=== PATIENT | female | born 1990 | race Caucasian/White ===

== ENCOUNTER 2017-11-13 | Emergency (ER) | payer MEDICAID | END 2017-11-13 20:05 | disposition home or self-care (01) | PROC: 2W3DX1Z Immobilization of Left Lower Arm using Splint (ICD-10-PCS; principal; 2017-11-13) ==

== ENCOUNTER 2017-11-29 15:11 | Day surgery (SDC) | payer MEDICAID ==
[~2017-11-29 15:11] MED LIST: HYDROCODONE/APAP 5/325 TAB PO SCH
[2017-11-29] MEDS ORDERED: BUPIVACAINE/EPI 0.5% 30 ML SDV ONE ×2 (15:17→17:27)
[2017-11-29] MEDS ORDERED: ceFAZolin 2 GM/DEXTROSE 100 ML IV ONE (15:28)
[2017-11-29] MEDS ORDERED: LR 1,000 ML IV ONE (15:29)
[2017-11-29] MEDS ORDERED: LIDOCAINE 1% 2 ML INJ ID PRN (15:29)
--- NOTE | 2017-11-29 18:11 | PDHPUP ---
History & Physical Update H&P update statement: This history and physical update is based on an assessment of the patient which was completed after admission or registration (within 24 hours), but prior to the surgery/procedure. H&P update: H&P reviewed & patient examined, no change in patient's condition since H&P completed
[2017-11-29] MEDS ORDERED: MIDAZOLAM 2 MG/2 ML VIAL ONE (18:50)
[2017-11-29] MEDS ORDERED: MIDAZOLAM 2 MG/2 ML VIAL IVP ONE (18:50)
[2017-11-29] MEDS ORDERED: ALBUTEROL 3 ML DEYVIAL IH PRN (18:51)
[2017-11-29] MEDS ORDERED: ONDANSETRON 4 MG/2 ML VIAL IVP PRN (18:51)
[2017-11-29] MEDS ORDERED: HYDROmorphONE/DILAUDID 1 MG/ML INJ IVP PRN (18:51)
[2017-11-29] MEDS ORDERED: NALOXONE HCL 0.4 MG/ML INJ IVP PRN (18:51)
[2017-11-29] MEDS ORDERED: oxyCODONE IR 5 MG TAB PO PRN (18:51)
[2017-11-29] MEDS ORDERED: PROMETHAZINE HCL 25 MG/ML INJ IVP PRN (18:51)
[2017-11-29] MEDS ORDERED: HYDROCODONE/APAP 5/325 TAB PO PRN (18:51)
[2017-11-29] MEDS ORDERED: fentaNYL 100 MCG/2 ML INJ IVP PRN (18:51)
[2017-11-29] MEDS ORDERED: DEXAMETHASONE 4 MG/ML VIAL IVP PRN (18:51)
[2017-11-29] MEDS ORDERED: LR 500 ML IV PRN (18:51)
--- NOTE | 2017-11-29 18:51 | PDANEPAE ---
ANE History of Present Illness here for wrist ORIF ANE Past Medical History - Cardiovascular History Hx Hypertension: No Hx Arrhythmias: No Hx Chest Pain: No Hx Coronary Artery / Peripheral Vascular Disease: No Hx CHF / Valvular Disease: No Hx Palpitations: No - Pulmonary History Hx COPD: No Hx Asthma/Reactive Airway Disease: No Hx Recent Upper Respiratory Infection: No Hx Oxygen in Use at Home: No Hx Sleep Apnea: No Sleep Apnea Screening Result - Last Documented: Negative - Neurologic History Hx Cerebrovascular Accident: No Hx Seizures: No Hx Dementia: No - Endocrine History Hx Diabetes: No - Renal History Hx Renal Disorders: No Renal History Comment: HX OF KIDNEY INFECTION 10 YRS AGO - Liver History Hx Hepatic Disorders: No - Neurological & Psychiatric Hx Hx Neurological and Psychiatric Disorders: Yes Neurological / Psychiatric History Comment: ANXIETY. DEPRESSION. ADHD - Cancer History Hx Cancer: No - Congenital Disorder History Hx Congenital Disorders: No - GI History Hx Gastrointestinal Disorders: No - Other Health History Other Health History: LOTS OF MOSQUITO BITES CURRENTLY - Chronic Pain History Chronic Pain: No - Surgical History Prior Surgeries: RADIAL PLATE AND PINS IN RIGHT WRIST. TUBES IN EARS CHILD ANE Review of Systems Review of systems is: negative Review of Systems: - Exercise capacity Exercise capacity: >=4 METS METS (RN): 4 METS ANE Patient History - Allergies Allergies/Adverse Reactions: No Known Allergies Allergy (Verified 11/28/17 18:02) - Home Medications Home medications: home medication list seen and reviewed Home Medications: ACETAMINOPHEN 11/28/17 [Last Taken 11/15/17] Ibuprofen 11/28/17 [Last Taken 11/15/17] - NPO status NPO Status: no food or drink >8 hours NPO Since - Liquids (Date): 11/29/17 NPO Since - Liquids (Time): 10:00 NPO Since - Solids (Date): 11/29/17 NPO Since - Solids (Time): 13:00 - Smoking Hx Smoking Status: Former smoker - Alcohol Use Alcohol Use: Occasionally - Family Anes Hx Family Hx Anesthesia Complications: UNSURE OF FAMILY HX- SHE DOESN'T THINK THERE IS ANY ANE Labs/Vital Signs - Vital Signs Vital Signs: reviewed preoperatively; see RN documention for details Blood Pressure: 118/88 Heart Rate: 69 Respiratory Rate: 16 O2 Sat (%): 97 Height: 162.56 cm Weight: 54.431 kg ANE Physical Exam - Airway Neck exam: FROM Mallampati Score: Class 1 - Pulmonary Pulmonary: no respiratory distress - Cardiovascular Cardiovascular: regular rate and rhythym - ASA Status ASA Status: I ANE Anesthesia Plan Anesthesia Plan: GA w LMA
[2017-11-29] MEDS ORDERED: PROPOFOL/EMULSION 500 MG/50 ML BOTTLE IV ONE (18:56)
[2017-11-29] MEDS ORDERED: fentaNYL 100 MCG/2 ML INJ ONE ×2 (19:01→19:30)
[2017-11-29] MEDS ORDERED: HYDROmorphONE/DILAUDID 2 MG/ML INJ ONE (21:17)
--- NOTE | 2017-11-29 21:56 | POSTANESTH ---
Post Anesthetic Evaluation Cardiovascular Status: Normal, Stable Respiratory Status: Normal, Stable Level of Consciousness/Mental Status: Alert and Oriented Pain Control: Adequate, Prn Tx Ordered Nausea/Vomiting Control: Adequate, Prn Tx Ordered Complications Possibly Related to Anesthesia: None Noted
[2017-11-29] MEDS ORDERED: HYDROCODONE/APAP 5/325 TAB ONE (22:10)
[2017-11-29 22:46] VITALS: BP 105/76
--- NOTE | 2017-11-29 22:52 | GOP ---
DATE OF OPERATION: 11/29/2017 SURGEON: Neeraj Ibarra MD PREOPERATIVE DIAGNOSIS: Intra-articular two-part distal radius fracture. POSTOPERATIVE DIAGNOSIS: Intra-articular two-part distal radius fracture. PROCEDURE PERFORMED: Open reduction and internal fixation of left distal radius fracture. FINDINGS: ESTIMATED BLOOD LOSS: 10 cc. INDICATIONS: This patient is a 27-year-old female who sustained this injury on November 13. She was seen in the ER initially and then seen by me in clinic. I reviewed the x-rays. The initial injury x-rays showed a comminuted distal radius fracture with an intra-articular split. There was over 35 degrees of volar angulation. Postreduction films showed improvement of angulation. However, her dorsal tilt was still not within tolerances. There did appear to be somewhat significant rotation of the fracture with visible very large volar spike. The combination of that and the intra-articular component makes this an unstable fracture. I discussed with the patient the risks and benefits of surgery. Risks include pain, bleeding, infection, damage to surrounding structures, need for further surgery, stiffness, delayed union, nonunion. She understood these risks, and she wished to proceed. Due to insurance difficulty , the patient is having issues signing up for her Medicaid. Again, as it had lapsed, surgery was delayed until the 2-week yamileth. She was still having some difficulty with the insurance. However, I did speak to her, mentioned that reduction of the fracture is easier when done in a timely fashion. We decided to proceed today. DESCRIPTION OF PROCEDURE: The patient was seen in the preoperative holding area. She was given opportunity to ask questions. All questions were answered. Consent was signed. Surgical site was marked. She was transferred to operative suite. Care was taken to transfer the patient to the operating room. Good care was taken to pad all bony prominences on the gurney. Time-out was called including surgical and nurse teams confirming the surgical site and procedure to be performed. General anesthesia was induced by the anesthesia team. 2 g of Ancef given prior to incision. Left upper extremity was prepped and draped in usual sterile fashion. Esmarch was used to exsanguinate the left upper extremity. Tourniquet was inflated to 250 mmHg. I then marked out a modified volar Manjeet approach to the distal radius. I carefully performed the approach, protecting all vital structures at all times. I peeled away the PQ from the radius. I performed an Avinash modification of this approach by step lengthening the brachioradialis and opening up the radial septum. I then peeled away the dorsal periosteum from the fracture which was visible as she had a transverse split in the pronator quadratus. The fracture was visible. There was a significant angulation of the fracture. I pronated the shaft away to visualize the articular surface fragment. I then released the dorsal periosteum which was now quite scarred in as it was 2 weeks. Doing so eased the reduction. I was able to achieve anatomic reduction. We then chose a plate. I placed the plate down to bone. I checked the reduction and plate position under fluoroscopy. This patient had a peculiar anatomic feature of the Synthes plate did not fit the articular surface. It was off the bone quite prominently. Checking her reduced radius on the AP view, she had a very prominently bowed ulna and an increased radial inclination of the radius. 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 This altered the anatomy of her distal radius, and the plate did not fit very well. I tried several other plates from the tray. However, I then took the original plate and then bent it, attempting to conform it to the bone as best I could. I placed the plate down to the bone again. Once it was secured, I held the plate down to the bone with a cortical screw. I then placed several screws into the dorsal distal fragment and the distal locking cluster. I did this under direct fluoroscopic visualization with a variable angle system. I did this because the plate was bent. It was no longer capturing the fragment as well. Doing so , I was able to capture the fragment and stabilize the fracture. I then placed locking screws into the shaft after pulling the plate down to the bone. I checked the final reduction. I was happy with the final reduction. The plate was off the bone just a little bit. However, visually this was still shy of the watershed line. I flexed and extended the wrist, and the fragment was stable. I also did this under live fluoroscopy, and the fragment was stable. I took final x-rays. I checked the axial views to see if any penetration of the dorsal cortex. There was a long screw which was the styloid screw, and I changed the screw out to a short one and confirmed that it was short, well short of the dorsal cortex. I then irrigated copiously with sterile saline. I closed the distal aspect of the pronator quadratus tendon over the plate to prevent tendon irritation. I then repaired the length and brachioradialis. The tourniquet was let down. All bleeding was controlled. I closed the FCR sheath over the FCR and then I closed the wound in layers with a lesser ring subcuticular stitch. Sterile dressing was applied. Steri-Strips were applied. Patient was placed in a volar slab splint. She was awoken from general anesthesia in stable condition and taken to the PACU in stable condition. IMPLANTS USED: Synthes variable angle distal radius plating system. POSTOPERATIVE CONDITION: Stable. POSTOPERATIVE PLAN: The patient will follow up with me in 10-14 days. I will also have her see a hand therapist prior to seeing me to make a removable splint. I will follow her radiographically. /[id number]/MODL MTDD
== END 2017-11-29 22:55 | disposition home or self-care (01) ==
LOC: FSGY 15:11
PROVIDERS: ATTEND Orthopaedic Surgery Hand Surgery
PROC: 0PSJ04Z Reposition Left Radius with Internal Fixation Device, Open Approach (ICD-10-PCS; principal; 2017-11-29 16:30)
DX: S52.572A Other intraarticular fracture of lower end of left radius, initial encounter for closed fracture (principal); W17.89XA Other fall from one level to another, initial encounter; Y93.39 Activity, other involving climbing, rappelling and jumping off; F41.8 Other specified anxiety disorders; F90.9 Attention-deficit hyperactivity disorder, unspecified type
CPT/HCPCS: C1713; J0690; J1170; J2250; J2704; J3010

== ENCOUNTER → 2017-12-13 | Outpatient (CLI) | payer MEDICAID | LOC: BMCIMAGING 13:52 | PROVIDERS: ATTEND Orthopaedic Surgery Hand Surgery | DX: S52.572D Other intraarticular fracture of lower end of left radius, subsequent encounter for closed fracture with routine healing (principal) ==

== ENCOUNTER 2017-12-27 13:52 | Emergency (ER) | payer MEDICAID ==
--- NOTE | 2017-12-27 15:35 | EDPHY ---
H & P Stated Complaint: LLE pain Time Seen by Provider: 12/27/17 15:00 HPI/ROS: CHIEF COMPLAINT: "I think I have a blood clot in my leg" HISTORY OF PRESENT ILLNESS: 27-year-old female with no coagulopathic disorder, states that 3 days ago she stubbed her right 4th toe and today felt pain in her right calf which has now resolved, thinks that she may have dislodged a thrombus. She is able to bear weight. She denies dyspnea. Denies chest pain. Denies paresthesia. Denies syncope or near-syncope. REVIEW OF SYSTEMS: 10 systems reviewed and negative with the exception of the elements mentioned in the history of present illness PAST MEDICAL & SURGICAL HISTORY: No pertinent medical or surgical history SOCIAL HISTORY: Nonsmoker FAMILY HISTORY:multiple maternal family members with history of thrombus, no further history from patient PHYSICAL EXAM (Prior to examination, patient consented to physical exam, hands were washed and my usual and customary physical exam procedures followed) 1) GENERAL: Well-developed, well-nourished, alert and oriented. Appears to be in no acute distress. 2) HEAD: Normocephalic, atraumatic 3) HEENT: Pupils equal, round, reactive to light bilaterally. Sclera anicteric. 4) NECK: Full range of motion, no meningeal signs. 5) LUNGS: Clear auscultation bilaterally, no wheezes, no rhonchi, no retractions. 6) HEART: Regular rate and rhythm, no murmur, no heave, no gallop. 7) ABDOMEN: No guarding, no rebound, no focal tenderness,, 8) MUSCULOSKELETAL: Right lower extremity: Tender to palpation right 4th toe with ecchymosis noted. No deformity no angulation intact skin. No signs of infection. Negative Homans no palpable cord. Soft compartments. No discoloration. Capillary refill less than 2 sec. DP PT pulses present and symmetrical. No foot drop. No lower extremity pain. 9) BACK: No CVA tenderness, no midline vertebral tenderness, no fluctuance, no step-off, no obvious trauma, no visual or palpable abnormality. 10) SKIN: No rash, no petechiae. 11) Psychiatric: Patient is oriented X 3, there is no agitation. DIFFERENTIAL DIAGNOSIS: In no particular order including but not limited to DVT , compartment syndrome, Young cyst, muscle strain, toe fracture - Personal History LMP (Females 10-55): 1-7 Days Ago Current Tetanus/Diphtheria Vaccine: Unsure - Medical/Surgical History Hx Asthma: No Hx Chronic Respiratory Disease: No Hx Diabetes: No Hx Cardiac Disease: No Hx Renal Disease: No Hx Cirrhosis: No Hx Alcoholism: No Hx HIV/AIDS: No Hx Splenectomy or Spleen Trauma: No Other PMH: ear tubes as a child, r wrist surgery, L wrist injury - Social History Smoking Status: Heavy smoker Constitutional: Initial Vital Signs Temperature (C) 36.9 C 12/27/17 14:15 Heart Rate 89 12/27/17 14:15 Respiratory Rate 18 12/27/17 14:15 Blood Pressure 94/61 L 12/27/17 14:15 O2 Sat (%) 96 12/27/17 14:15 O2 Delivery Mode Room Air Allergies/Adverse Reactions: No Known Allergies Allergy (Verified 12/27/17 14:18) Home Medications: Medication Instructions Recorded NK [No Known Home Meds] 12/27/17 Medical Decision Making - Diagnostics Imaging Results: Imaging Impressions Extremity Venous Study 12/27/17 15:14 Impression: No evidence of deep vein thrombosis in the right lower extremity. Results called to JANET Palencia. Foot X-Ray 12/27/17 15:14 Impression: Negative right foot radiographs. Images review myself ED Course/Re-evaluation: 3:30 p.m.: Will obtain x-ray of the foot as she is tender to palpation 4th digit after stubbing her toe and will obtain ultrasound of the right lower extremity. On exam, at this time, doubt compartment syndrome she has soft compartments, she is neurovascularly intact distally. I saw this patient independently based on established practice protocols. Care of patient under supervision of secondary supervising physician Dr Idris Gamble with whom I discussed case. 2:00 p.m.: Re-evaluation, discussed her negative x-ray and negative ultrasound study. She is neurovascular intact. Doubt arterial occlusion . No evidence of lower extremity ischemia. Plan will be discharge. Recommend elevation, cold packs. My Usual and customary orthopedic precautions and instructions provided. Departure - Departure Disposition: Home, Routine, Self-Care Clinical Impression: Right calf pain Sprain of toe, fourth, right Qualifiers: Encounter type: initial encounter Qualified Code(s): S93.504A - Unspecified sprain of right lesser toe(s), initial encounter Condition: Good Instructions: Muscle Strain (ED) Additional Instructions: Return to the ER immediately if you experience discoloration, have worsening pain, numbness, tingling, or any other symptoms that concern you. If you received x-rays in the emergency department today, be advised, that ligamentous , tendon, muscular, and other non-bony injury cannot be fully ruled out. Try to keep your affected extremity elevated above the level of your chest, and keep cold packs on the affected area, for the next 48 hours. Referrals: Javier Navas MD [Medical Doctor] - As per Instructions
[2017-12-27 16:28] VITALS: BP 115/62
== END 2017-12-27 16:26 | disposition home or self-care (01) ==
DX: S93.504A Unspecified sprain of right lesser toe(s), initial encounter (principal); M79.661 Pain in right lower leg; W22.09XA Striking against other stationary object, initial encounter; F17.200 Nicotine dependence, unspecified, uncomplicated; D68.9 Coagulation defect, unspecified; Y92.9 Unspecified place or not applicable